=== PATIENT | female | born 1980 | race Caucasian/White ===

== ENCOUNTER → 2021-05-16 09:39 | Outpatient (CLI) | payer BC, SELFPAY ==
--- NOTE | ~2021-05-16 | US_ITS ---
EXAMINATION: US thyroid DATE: 05/16/2021 09:58 INDICATION: Thyroiditis. TECHNIQUE: Multiple ultrasound images of the thyroid were obtained. COMPARISON: None. FINDINGS: The right thyroid lobe measures 5.6 x 1.9 x 2.3 cm. The left thyroid lobe measures 6.0 x 1.7 x 1.9 c m. The thyroid is diffusely heterogeneous and hypoechoic with increased vascularity. In the right th yroid lobe, there is a 1.2 cm solid, isoechoic, ihkog-kkvu-byyz nodule with ill-defined margin withou t echogenic foci (TI-RADS TR3). In the left thyroid lobe, there is a 1.4 cm solid, isoechoic, wider-t damon-tall nodule with smooth margin without echogenic foci (TR3). IMPRESSION: 1. Heterogeneous, hypervascular thyroid, consistent with chronic lymphocytic (Dilcia) thyroiditis. 2. Thyroid nodules, likely not clinically significant. No follow-up is needed. Reviewed, dictated and finalized at location A. REST ASSEMBLER IMPRESSION: 1. Heterogeneous, hypervascular thyroid, consistent with chronic lymphocytic (H ashimoto) thyroiditis. 2. Thyroid nodules, likely not clinically significant. No follow-up is needed.
== END ==
PROVIDERS: PCP Nurse Practitioner Family; Visit Provider Nurse Practitioner Family
DX: E06.9 Thyroiditis, unspecified (principal); E04.2 Nontoxic multinodular goiter
CPT/HCPCS: 76536

== ENCOUNTER 2022-03-20 11:40 | Outpatient (CLI) | payer BC, SELFPAY ==
--- NOTE | 2022-03-20 | ECG_ITS ---
Measurements Intervals [place] Rate: 68 P: 36 NM: 123 QRS: 46 QRSD: 76 T: 40 QT: 377 QTc: 401 Interpretive Statements SINUS RHYTHM WITH SINUS ARRHYTHMIA NORMAL ELECTROCARDIOGRAM NO PREVIOUS ECG AVAILABLE FOR COMPARISON Electronically Signed On 03-20-2022 15:00:27 SAND SCREENER OPERATOR by Tanner Rodriguez M.D.
== END 2022-03-20 11:41 | disposition home or self-care (01) ==
PROVIDERS: PCP Nurse Practitioner Family; Visit Provider Nurse Practitioner
DX: E66.9 Obesity, unspecified (principal)
CPT/HCPCS: 93005